=== PATIENT | male | born 1995 | race Native Hawaiian/Other Pacific Islander ===

== ENCOUNTER 2016-11-12 20:38 | Emergency (ER) | payer OTHER ==
[~2016-11-12] VITALS: Ht 177.8 cm; Wt 74.8 kg
[2016-11-12 21:44] LABS: PLATELET COUNT 210 K/uL (142-355)
== END 2016-11-12 22:11 | disposition home or self-care (01) ==
LOC: ED 20:38
DX: L03.032 Cellulitis of left toe (principal); L02.622 Furuncle of left foot; B85.2 Pediculosis, unspecified
CPT/HCPCS: 85027; 96372; 99283; J0696